=== PATIENT | female | born 1960 | race Caucasian/White ===

== ENCOUNTER 2018-04-02 20:24 | Emergency (ER) | payer SELFPAY ==
[~2018-04-02] VITALS: Ht 162.6 cm; Wt 63.5 kg
[~2018-04-02 20:24] MED LIST: ACET-8386 PO; ALPR0.5O4 PO; AMOX-842 PO; CEPH500T PO; IBUP-44 PO
[2018-04-02 20:40] VITALS: BP 138/67
--- NOTE | 2018-04-02 20:42 | NUR ---
PT TRIAGED AND SENT TO ED LOBBY
--- NOTE | 2018-04-02 21:56 | NUR ---
PT TAKEN TO BED 2
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
[2018-04-02] MEDS ORDERED: LIDOCAINE/EPI 1% 1:100000 20 ML VIAL INJ ONE (22:10)
[2018-04-02] MEDS ORDERED: KETOROLAC 30 MG/ML VIAL IM ONE (22:10)
--- NOTE | 2018-04-02 22:35 | NUR ---
PERFORM I AND D AT BEDSIDE. PT TOLERATED WELL
--- NOTE | 2018-04-02 22:56 | NUR ---
Patient discharged with v/s stable. Written and verbal after care instructions given and explained. Patient alert, oriented and verbalized understanding of instructions. Ambulatory with steady gait. All questions addressed prior to discharge. ID band removed. Patient advised to follow up with PMD. Rx of NORCO 5/325 MG, BACTRIM DS given. Patient educated on indication of medication including possible reaction and side effects. Opportunity to ask questions provided and answered.
[2018-04-02 22:57] VITALS: BP 122/76
== END 2018-04-02 22:56 | disposition home or self-care (01) ==
LOC: MED 20:24
DX: L02.01 Cutaneous abscess of face (principal); Z88.0 Allergy status to penicillin; Z79.899 Other long term (current) drug therapy
CPT/HCPCS: 10060; 90471; 90715; 96372; 99284; J1885; J2001